=== PATIENT | male | born 1955 | race Caucasian/White ===

== ENCOUNTER → 2019-08-17 | Outpatient (CLI) | payer OTHER | END | disposition home or self-care (01) | LOC: RAH 15:36 | PROVIDERS: ATTEND Emergency Medicine Emergency Medical Services | DX: R91.1 Solitary pulmonary nodule (principal); R06.02 Shortness of breath | CPT/HCPCS: 71250 ==

== ENCOUNTER → 2022-10-21 | Outpatient (CLI) | payer OTHER | END | disposition home or self-care (01) | LOC: SHCH 09:31 | PROVIDERS: ATTEND Internal Medicine Cardiovascular Disease | DX: I51.7 Cardiomegaly (principal); Q23.1 Congenital insufficiency of aortic valve; R01.1 Cardiac murmur, unspecified; I51.89 Other ill-defined heart diseases | CPT/HCPCS: 93306 ==